=== PATIENT | female | born 1960 | race Caucasian/White ===

== ENCOUNTER 2017-07-07 10:40 | Inpatient (IN) | payer MEDICARE, OTHER ==
[~2017-07-07] VITALS: Ht 157.5 cm; Wt 80.2 kg
[~2017-07-07 10:40] MED LIST: ASPI81TA3 PO; ATOR10TA65 PO; BACTDS PO; GABA300C16 PO; LISI10TA2 PO; MECL-77 PO; MTF1000T PO
[2017-07-07] MEDS ORDERED: KETOROLAC 30 MG INJ IV STA (12:57)
[2017-07-07] MEDS ORDERED: SOD CHLORIDE 0.9% 1,000 ML IV STA (12:57)
--- NOTE | 2017-07-07 13:11 | ERA ---
ER Documentation Chief Complaint Date/Time DATE: 07/07/17 TIME: 13:05 Chief Complaint HPI This is a 56-year-old female with a past medical history of diabetes, hypertension, hyperlipidemia, multiple previous abdominal surgeries with a partial bowel resection and colostomy status post reversal who is presenting with 2 days of fever, chills, dry nonproductive cough, shortness of breath and full body aches and pains. The patient also endorses a pressure in the chest, exacerbated by coughing, nonradiating, not exacerbated by exertion. The patient 's headache is mild to moderate, generalized, aching without photophobia, nausea or vomiting. The patient was seen by her primary care doctor. She is found to be tachycardic, and she was referred to the ER for further evaluation. ROS All systems reviewed and are negative except as per history of present illness. Medications Home Meds Reported Medications Duloxetine Hcl* (Duloxetine Hcl*) 30 Mg Capsule.dr, 30 MG PO DAILY, #30 CAP 07/07/17 Mirtazapine* (Mirtazapine*) 15 Mg Tablet, 15 MG PO HS, TAB 07/07/17 Meclizine Hcl* (Meclizine Hcl*) 25 Mg Tablet, 12.5 MG PO Q8H Y for DIZZINESS, TAB 07/07/17 Gabapentin* (Gabapentin*) 300 Mg Capsule, 300 MG PO DAILY, #60 CAP 07/07/17 Olmesartan/Hydrochlorothiazide (Benicar Hct 40-25 mg Tablet) 1 Each Tablet, 1 EACH PO DAILY, TAB 07/07/17 Ferrous Sulfate* (Ferrous Sulfate*) 325 Mg Tabec, 325 MG PO DAILY, TAB 07/07/17 Fenofibrate Nanocrystallized* (Fenofibrate*) 145 Mg Tablet, 145 MG PO DAILY, TAB 07/07/17 Sitagliptin Phos/Metformin HCl (Janumet 50-1,000 mg Tablet) 1 Each Tablet, 1 EACH PO BID, TAB 07/07/17 Atorvastatin (Atorvastatin) 10 Mg Tablet, 10 MG PO DAILY, TAB 04/19/14 Discontinued Reported Medications Metformin* (Glucophage*) 1,000 Mg Tablet, 1000 MG PO BID, TAB 03/23/15 Aspirin (Aspirin) 81 Mg Chew, PO DAILY 08/15/13 Lisinopril* (Lisinopril*) 10 Mg Tablet, 10 MG PO DAILY 08/15/13 Gabapentin* (Gabapentin*) 300 Mg Capsule, 300 MG PO DAILY 08/15/13 Discontinued Scripts Sulfamethoxazole-Trimethoprim* (Bactrim* DS) 800-160 Mg Tab, 1 TAB PO BID for 7 Days, TAB Prov:MAT EDGAR MD 03/27/15 Allergies Allergies: Coded Allergies: vancomycin (Unverified Allergy, Intermediate, RASH, ITCHING, 06/08/14) Patient developed rash that evolved to body involvement, reportedly after Vanco infusion 06/05/14 Benadryl 25 mg IVP x 2, Solumedrol 60 mg IVP given Vanco DC'ed, changed to Zyvox Uncoded Allergies: vancomicine (Allergy, Intermediate, rash, iching, 06/08/14) PMhx/Soc History of Surgery: Yes (ABD COLON RESECTION 2013/BACK SURG 2013) Anesthesia Reaction: No Hx Neurological Disorder: No Hx Respiratory Disorders: No Hx Cardiac Disorders: Yes (HTN, HLD, DM) Hx Psychiatric Problems: No Hx Miscellaneous Medical Probl: No Hx Alcohol Use: No Hx Substance Use: No Hx Tobacco Use: No Smoking Status: Never smoker FmHx Family History: coronary disease, diabetes Physical Exam Vitals Vital Signs Date Time Temp Pulse Resp B/P Pulse Ox O2 Delivery O2 Flow Rate FiO2 07/07/17 18:07 98.9 97 29 151/82 94 2.0 07/07/17 15:00 3.0 07/07/17 13:35 98.5 92 34 112/100 Mechanical Ventilator 07/07/17 13:01 Nasal Cannula 2 Physical Exam Const: Well-developed, well-nourished Head: Atraumatic Eyes: Normal Conjunctiva ENT: Normal External Ears, Nose and Mouth. Moist Mucous membranes Neck: Full range of motion. ~ No meningismus. Resp: Clear to auscultation bilaterally Cardio: Regular rate and rhythm, no murmurs Abd: Soft, non tender, non distended. Normal bowel sounds Skin: No petechiae or rashes Back: No midline or flank tenderness Ext: No cyanosis, or edema Neur: Awake and alert Psych: Normal Mood and Affect Result Diagram: 07/07/17 1245 07/07/17 1245 Results 24 hrs Laboratory Tests Test 07/07/17 12:45 White Blood Count 14.110^3/ul Red Blood Count 4.7610^6/ul Hemoglobin 13.0g/dl Hematocrit 40.2% Mean Corpuscular Volume 84.5fl Mean Corpuscular Hemoglobin 27.3pg Mean Corpuscular Hemoglobin Concent 32.3g/dl Red Cell Distribution Width 13.9% Platelet Count 27309^3/UL Mean Platelet Volume 9.7fl Neutrophils % 73.6% Lymphocytes % 18.9% Monocytes % 6.0% Eosinophils % 0.4% Basophils % 0.4% Nucleated Red Blood Cells % 0.0/100WBC Neutrophils # (Manual) 10.410^3/ul Lymphocytes # 2.710^3/ul Monocytes # 0.810^3/ul Eosinophils # 0.110^3/ul Basophils # 0.110^3/ul Nucleated Red Blood Cells # 0.010^3/ul Sodium Level 141mmol/L Potassium Level 4.2mmol/L Chloride Level 96mmol/L Carbon Dioxide Level 26mmol/L Anion Gap 23 Blood Urea Nitrogen 34mg/dl Creatinine 1.42mg/dl Glucose Level 183mg/dl Calcium Level 10.1mg/dl Troponin I < 0.012ng/ml Current Medications Medications (Trade) Dose Ordered Sig/Anju Route PRN Reason Start Time Stop Time Status Last Admin Dose Admin Sodium Chloride (NS) 1,000 ml @ 1,000 mls/hr Q1H STAT IV 07/07/17 12:57 07/07/17 13:56 DC 07/07/17 13:31 Ketorolac Tromethamine 30 mg 30 mg ONCE STAT IV 07/07/17 12:57 07/07/17 12:59 DC 07/07/17 13:31 Sodium Chloride (NS) 1,000 ml @ 1,000 mls/hr Q1H ONCE IV 07/07/17 15:00 07/07/17 15:59 DC 07/07/17 16:15 Diphenhydramine HCl (Benadryl) 25 mg ONCE ONCE IV 07/07/17 15:00 07/07/17 15:02 DC 07/07/17 16:15 Prochlorperazine (Compazine Inj) 10 mg ONCE ONCE IV 07/07/17 15:00 07/07/17 15:02 DC 07/07/17 16:23 Acetaminophen (Tylenol Tab) 650 mg ONCE ONCE PO 07/07/17 15:00 07/07/17 15:02 DC 07/07/17 16:16 Ceftriaxone Sodium 1 gm 1 gm ONCE ONCE IM 07/07/17 17:00 07/07/17 18:03 DC Azithromycin (Zithromax 500mg/ NS (Pmx)) 250 ml @ 250 mls/hr ONCE ONCE IVPB 07/07/17 17:00 07/07/17 17:59 DC 07/07/17 18:04 IV Flush 10 ml 10 ml STK-MED ONCE .ROUTE 07/07/17 17:19 07/07/17 17:20 DC 07/07/17 17:50 Sodium Chloride (NS) 100 ml @ ud STK-MED ONCE .ROUTE 07/07/17 17:19 07/07/17 17:20 DC 07/07/17 17:51 Iodixanol (Visipaque Locm) 100 ml STK-MED ONCE .ROUTE 07/07/17 17:19 07/07/17 17:20 DC 07/07/17 17:51 Ondansetron HCl (Zofran Inj) 4 mg ER BRIDGE PRN IV NAUSEA AND/OR VOMITING 07/07/17 18:00 07/08/17 17:59 Acetaminophen 650 mg 650 mg ER BRIDGE PRN PO MILD PAIN/FEVER 07/07/17 18:00 07/08/17 17:59 Ceftriaxone Sodium (Rocephin) 50 ml @ 100 mls/hr ONCE ONCE IVPB 07/07/17 18:30 07/07/17 18:59 Procedures/MDM The patient is presenting with fever, tachycardia, myalgias and fatigue. The patient does have an elevated temperature at 100.3. She is also been hypoxic in the emergency department, oxygenating at 84% at times despite being on nasal cannula. I am concerned about an infectious etiology of her symptoms. The patient does endorse chest discomfort and pressure, worsening with cough. My suspicion for a cardiac etiology given her full constitution of symptoms is less. I do not hear a murmur on exam to think that this could be endocarditis. I am concerned about pneumonia. EKG read by me: Rate/Rhythm: Regular rhythm, sinus tachycardia at a rate of 104 Intervals: Normal [place]: Slight Right shifted Nonspecific repolarization abnormalities Impression: No evidence of acute ischemia or arrhythmia The patient's chest xray was read byt the radiologist as follows: MPRESSION: Low lung volumes . Elevated right hemidiaphragm and basilar atelectasis. Retrocardiac infiltrate or atelectasis and probable small bilateral pleural effusions. Cardiomegaly. Physician Sarah Date Time Electronically viewed and signed by Physician Sarah on 07/07/2017 14: 32 Given the patient's symptoms, I am concerned of a LLL pneumonia based on the chest xray. Given the patient's persistent tachycardia and hypoxia, a CTA chest was performed to rule out a PE. The study was read by the radiologist as follows : IMPRESSION: No CT evidence for pulmonary embolus. Patchy and confluent ground-glass opacities and likely developing consolidations are identified in the left greater than right lungs which are suspicious for a multifocal pneumonia. Follow-up to resolution is limited to exclude other etiologies such as septic and / or malignant emboli. Stable moderate cardiomegaly and mild pulmonary vascular congestion. 2.6 cm likely hemangioma in the left lobe of the liver. Physician Eulalio Date Time Electronically viewed and signed by Physician Eulalio on 07/07/2017 18:12 The patient was given 2 L of IV fluid in the emergency department. She was also given azithromycin and Rocephin in the emergency department for presumed pneumonia. She is currently being treated for community-acquired pneumonia. The patient does not have evidence of endocarditis. I do not intend to obtain and MRI at this time. Patient's blood work was obtained and reviewed. The patient does have a leukocytosis, which also correlates with an infectious etiology. The patient is not anemic. Her platelet count is normal. The patient's BMP does demonstrate an elevated creatinine at 1.42 with an elevated BUN at 34. Given the patient's age and approximate weight, I do place her GFR at around 60. I do feel that it was appropriate to give IV contrast to this patient. I do suspect dehydration. We gave her a total of 3 L of normal saline in the emergency department. The patient had a secondary complaint of a headache. She was given Toradol, Tylenol, Compazine and Benadryl in addition to IV fluids. This to helped to improve her headache. However, her headache did persist. We gave her fentanyl as well. The patient does not have any neck stiffness, and my suspicion for meningitis at this time is low. The patient was admitted to Dr. Blake, the panel hospitalist team as directed by her insurance. Departure Diagnosis: Primary Impression: Fever Qualified Code: R50.9 - Fever, unspecified fever cause Additional Impression: Tachycardia Condition: SEHILA Padilla MD Jul 07, 2017 13:11
[2017-07-07 13:27] LABS: BASOPHIL # 0.1 10^3/ul (0.0-0.1); BASOPHILS % 0.4 % (0.0-2.0); EOSINOPHILS # 0.1 10^3/ul (0.0-0.5); EOSINOPHILS % 0.4 % (0.0-7.0); HEMATOCRIT 40.2 % (37.0-47.0); LYMPHOCYTES # 2.7 10^3/ul (0.8-2.9); LYMPHOCYTES % 18.9 % (15.0-51.0); MEAN CORPUSCULAR HEMOGLOBIN 27.3 pg (29.0-33.0); MEAN CORPUSCULAR HGB CONC 32.3 g/dl (32.0-37.0); MEAN CORPUSCULAR VOLUME 84.5 fl (82.0-101.0); MEAN PLATELET VOLUME 9.7 fl (7.4-10.4); MONOCYTE # 0.8 10^3/ul (0.3-0.9); NEUTROPHILS % 73.6 % (39.0-77.0); PLATELET COUNT 338 10^3/UL (140-415); RED BLOOD COUNT 4.76 10^6/ul (4.20-5.40); RED CELL DISTRIBUTION WIDTH 13.9 % (11.5-14.5); WHITE BLOOD COUNT 14.1 10^3/ul (4.8-10.8)
[2017-07-07 13:46] LABS: ANION GAP 23 (8-16); BLOOD UREA NITROGEN 34 mg/dl (7-20); CALCIUM 10.1 mg/dl (8.4-10.2); CARBON DIOXIDE 26 mmol/L (21-31); CHLORIDE 96 mmol/L (97-110); CREATININE 1.42 mg/dl (0.44-1.00); GLUCOSE 183 mg/dl (70-220); POTASSIUM 4.2 mmol/L (3.5-5.1); SODIUM 141 mmol/L (135-144)
[2017-07-07 14:25] LABS: TROPONIN-I < 0.012 ng/ml (0.00-0.12)
--- NOTE | 2017-07-07 14:33 | RADRPT ---
PROCEDURE: XR Chest. CLINICAL INDICATION: Chest pain. TECHNIQUE: AP Portable chest. COMPARISON: 06/12/2014 FINDINGS: The patient is rotated to the left. The cardiomediastinal silhouette is enlarged. The aortic arch is calcified. The lung volumes are low with compressive changes. Increased elevation of the right hemidiaphragm and basilar atelectasis ar e visualized. Retrocardiac opacity is also seen. Probable small bilateral pleural effusions. No pne umothorax is seen. The osseous structures are intact IMPRESSION: Low lung volumes . Elevated right hemidiaphragm and basilar atelectasis. Retrocardiac infiltrate or atelectasis and probable small bilateral pleural effusions. Cardiomegaly. Physician Sarah Date Time Electronically viewed and signed by Physician Sarah on 07/07/2017 14:32 CS/
[2017-07-07] MEDS ORDERED: SITA1TAB5 PO (14:43)
[2017-07-07] MEDS ORDERED: FENO145T19 PO (14:45)
[2017-07-07] MEDS ORDERED: FER325 PO (14:46)
[2017-07-07] MEDS ORDERED: OLME1TAB5 PO (14:48)
[2017-07-07] MEDS ORDERED: GABA300C16 PO (14:48)
[2017-07-07] MEDS ORDERED: MIRT15TA5 PO (14:49)
[2017-07-07] MEDS ORDERED: MECL-77 PO (14:49)
[2017-07-07] MEDS ORDERED: DULO30CA47 PO (14:49)
[2017-07-07] MEDS ORDERED: SOD CHLORIDE 0.9% 1,000 ML IV ONE (15:00)
[2017-07-07] MEDS ORDERED: ACETAMINOPHEN 325 MG TAB PO ONE (15:00)
[2017-07-07] MEDS ORDERED: DIPHENHYDRAMINE 50 MG INJ IV ONE (15:00)
[2017-07-07] MEDS ORDERED: PROCHLORPERAZINE 10 MG INJ IV ONE (15:00)
[2017-07-07] MEDS ORDERED: AZITHROMYCIN 500MG/NS (PMX) 250 ML IVPB ONE (17:00)
[2017-07-07] MEDS ORDERED: CEFTRIAXONE 1 GM INJ IM ONE (17:00)
[2017-07-07] MEDS ORDERED: IODIXANOL LOCM 100 ML BTL ONE (17:19)
[2017-07-07] MEDS ORDERED: SOD CHLORIDE 0.9% 100 ML ONE (17:19)
[2017-07-07] MEDS ORDERED: ONDANSETRON 4 MG INJ IV PRN ×2 (18:00→19:00)
[2017-07-07] MEDS ORDERED: ACETAMINOPHEN 325 MG TAB PO PRN ×2 (18:00→19:00)
--- NOTE | 2017-07-07 18:12 | RADRPT ---
PROCEDURE: CTA Chest with contrast and with 3-D reconstructions CLINICAL INDICATION: persistent tachycardia, hypoxia, pain with deep breaths TECHNIQUE: The study was performed utilizing multidetector CT scanner. Direct spiral axial section s were obtained from the thoracic inlet to the upper abdomen with the use of intravenous contrast ma terial (100 cc of Visipaque 320). Sagittal, coronal and 3-D reformations were obtained. The images w ere reviewed on a PACS workstation. DLP 574.32 mGycm CTDIvol 19.72, 18.69 mGy One or more of the following dose reduction techniques were used: - Automated exposure control. - Adjustment of the mA and/or kV according to patient size. - Use of iterative reconstruction technique. COMPARISON: CTA chest from 06/13/2014 FINDINGS: There are no pulmonary emboli. There are patchy and confluent ground-glass opacities in bilateral lungs measuring up to 3 cm in the lateral aspect of the right mid lung which are suspicious for multifocal pneumonia there is mild pu lmonary vascular congestion. A possible consolidation is identified at the medial aspect of the lef t lung base posteriorly. There is no pleural fluid. There is no pneumothorax. There is stable moderate cardiomegaly. There is no pericardial fluid. The aorta is within normal l imits. There are no enlarged axillary or mediastinal lymph nodes. Again noted is a 2.6 cm round lesion in the superficial aspect of the left lobe of the liver which d emonstrates discontinuous peripheral nodular enhancement suggestive of a hemangioma. Osseous and soft tissue structures are within normal limits. IMPRESSION: No CT evidence for pulmonary embolus. Patchy and confluent ground-glass opacities and likely developing consolidations are identified in t he left greater than right lungs which are suspicious for a multifocal pneumonia. Follow-up to reso lution is limited to exclude other etiologies such as septic and / or malignant emboli. Stable moderate cardiomegaly and mild pulmonary vascular congestion. 2.6 cm likely hemangioma in the left lobe of the liver. RPTAT: EE Physician Eulalio Date Time Electronically viewed and signed by Juma Mo Physician on 07/07/2017 18:12 RA/
[2017-07-07] MEDS ORDERED: CEFTRIAXONE 1 GM/50 ML (PMX) 50 ML IVPB ONE (18:30)
[2017-07-07] MEDS ORDERED: MECLIZINE 12.5 MG TAB PO PRN (18:30)
[2017-07-07] MEDS ORDERED: ALBUTEROL/IPRATROPIUM (NEB) 3 ML AMP HHN PRN (19:00)
[2017-07-07] MEDS ORDERED: LORAZEPAM 2 MG INJ IV PRN (19:00)
[2017-07-07] MEDS ORDERED: NA PHOSPHATE/BIPHOS 133 ML ENEMA PR PRN (19:00)
[2017-07-07] MEDS ORDERED: NITROGLYCERIN (SL) 0.4 MG TAB SL PRN (19:00)
[2017-07-07] MEDS ORDERED: morphine 2 MG INJ IV PRN (19:00)
[2017-07-07] MEDS ORDERED: MAGNESIUM HYDROXIDE 30ML CUP PO PRN (19:00)
[2017-07-07] MEDS ORDERED: hydrALAzine 20 MG INJ IV PRN (19:00)
[2017-07-07] MEDS ORDERED: NACL 0.9% 3 ML SYG IV SCH (19:00)
[2017-07-07] MEDS ORDERED: DOCUSATE SODIUM 100 MG CAP PO PRN (19:00)
--- NOTE | 2017-07-07 19:04 | HP ---
DATE OF ADMISSION: 07/07/2017 CHIEF COMPLAINT: Chest pain and shortness of breath. HISTORY OF PRESENT ILLNESS: A 56-year-old female with past medical history of hypertension, diabetes, high cholesterol, prior pneumonia, who has been having body aches, shortness of breath and cough for the last 2 days and getting progressively worse. She took Tylenol Cold at home, which did not relieve her symptoms. No nausea or vomiting. No upper lower GI bleeding. No diarrhea. No constipation. No headaches or dizziness. No loss of consciousness. Her cough has been nonproductive. When she came into the ER today she was found with elevated white blood cell count of 14.1. Her chest x-ray showed signs of infiltrates and small bilateral pleural effusions. She ended up having a CTA of the chest performed in the ER that also showed signs of multifocal pneumonia. The patient was last here at our hospital in March 2015, at that time, she was treated for a kidney stone. ALLERGIES: VANCOMYCIN. HOME MEDICINES: 1. Atorvastatin 10 mg daily. 2. Dulcolax 30 mg daily. 3. Fenofibrate 145 mg daily. 4. Ferrous sulfate 325 mg daily. 5. Gabapentin 300 mg daily. 6. Meclizine 12.5 mg q.8 hours p.r.n. 7. Mirtazapine 50 mg bedtime. 8. Benicar 40-25, 1 tab daily. 9. Janumet 1 tab b.i.d. PAST SURGICAL HISTORY: Possible colon resection in 2013 and back surgery 2013. SOCIAL HISTORY: Negative for smoking, drinking, and IV drug use. FAMILY HISTORY: Noncontributory. PHYSICAL EXAMINATION: VITAL SIGNS: Today, T-max 99.0, pulse 65 to 97, respirations 16 to 34, blood pressure 116-151 systolic over 78-82 diastolic, and satting at 94 percent on 2 L nasal cannula. GENERAL: Patient lying in bed, appears somewhat lethargic, but answers questions appropriately. HEENT: Pupils equal, round, react to light. Extraocular muscles intact. NECK: Supple. No thyromegaly. LUNGS: Distant breath sounds bilaterally. CARDIOVASCULAR: S1, S2 heard. No rubs, gallops. ABDOMEN: Soft, nontender, nondistended. Normal bowel sounds. No rebound or guarding. MUSCULOSKELETAL: No lower extremity edema. NEUROLOGIC: No focal deficits. LABS: WBC 14.1, hemoglobin 13.0, hematocrit 40.2, and platelets 338. Sodium 141, potassium 4.2, chloride 96, CO2 26, BUN 34, creatinine 1.42, glucose 183. We mentioned the imaging studies. ASSESSMENT/PLAN: A 56-year-old female coming with shortness of breath, chest pain, and signs of multifocal pneumonia on imagin. Shortness of breath and chest pain secondary to multiple pneumonia. Admit the patient on broad-spectrum antibiotics. Check TSH, A1c, lipid panel, and intravenous (IV) fluids. Consider Infectious Disease consult. 2. History of diabetes. Check A1c, sliding scale insulin. 3. Hypertension. Continue current cardiac medications. Hydralazine p.r.n. 4. High cholesterol. Check lipid panel. 5. Renal insufficiency. Give her intravenous (IV) fluids. If creatinine worsens, consider Renal consult at that time. Consider physical therapy (PT) consult as well. Dictated By: Francisco Javier Blake MD /jesusita/tanner /Document#: [id number]
[2017-07-07] MEDS: SOD CHLORIDE 0.9% 1,000 ML IV SCH ×2 (19:54→23:57)
[2017-07-07] MEDS ORDERED: GLUCOSE GEL 15 GRAM TUBE PO PRN ×2 (20:00)
[2017-07-07] MEDS ORDERED: GLUCOSE GEL 15 GRAM TUBE BUCCAL PRN (20:00)
[2017-07-07] MEDS ORDERED: GLUCAGON 1 MG INJ IM PRN (20:00)
[2017-07-07] MEDS ORDERED: DEXTROSE 50% 50 ML SYRINGE IV PRN ×2 (20:00)
[2017-07-07] MEDS ORDERED: morphine 4 MG/ML VIAL IV STA (20:34)
[2017-07-07 21:37] VITALS: TEMP 98.9
[2017-07-07 21:46] VITALS: PULSE 97
[2017-07-07 22:45] VITALS: BP 134/79; RESP 16
[2017-07-07] MEDS: HEPARIN 5,000 UNIT/0.5 ML VIAL SC SCH (22:48)
[2017-07-07 23:16] VITALS: Ht 157.5 cm; Wt 80.2 kg
[2017-07-07] MEDS: INSULIN ASPART [NOVOLOG] 3 ML PEN SC SCH (23:56)
[2017-07-07] MEDS: PIPER-TAZO 3.375 GM IV (PMX) 100 ML IVPB SCH (23:57)
[2017-07-08] VITALS (13 sets, daily range): BP systolic 122–150; BP diastolic 66–78; PULSE 65–113; RESP 16–20
[2017-07-08] MEDS: ACCU-CHEK XX SCH (02:00)
[2017-07-08] MEDS ORDERED: PANTOPRAZOLE 40 MG INJ IV SCH (06:00)
[2017-07-08] MEDS: PIPER-TAZO 3.375 GM IV (PMX) 100 ML IVPB SCH ×3 (06:13→17:34)
[2017-07-08 08:11] LABS: BASOPHILS % 0.2 % (0.0-2.0); EOSINOPHILS # 0.1 10^3/ul (0.0-0.5); EOSINOPHILS % 1.1 % (0.0-7.0); HEMATOCRIT 35.2 % (37.0-47.0); LYMPHOCYTES # 1.7 10^3/ul (0.8-2.9); LYMPHOCYTES % 16.8 % (15.0-51.0); MEAN CORPUSCULAR HEMOGLOBIN 26.6 pg (29.0-33.0); MEAN CORPUSCULAR HGB CONC 31.3 g/dl (32.0-37.0); MEAN CORPUSCULAR VOLUME 85.2 fl (82.0-101.0); MEAN PLATELET VOLUME 9.6 fl (7.4-10.4); MONOCYTE # 0.5 10^3/ul (0.3-0.9); MONOCYTES % 5.4 % (0.0-11.0); NEUTROPHILS % 75.5 % (39.0-77.0); PLATELET COUNT 291 10^3/UL (140-415); RED BLOOD COUNT 4.13 10^6/ul (4.20-5.40); WHITE BLOOD COUNT 9.9 10^3/ul (4.8-10.8)
[2017-07-08 08:33] LABS: CHOL/HDL RATIO 4.5 RATIO
[2017-07-08] MEDS: FENOFIBRATE 145 MG TAB PO SCH (08:33)
[2017-07-08] MEDS: FERROUS SULFATE (EC) 325 MG TAB PO SCH (08:33)
[2017-07-08] MEDS: DULOXETINE 30 MG CAP DR PO SCH (08:33)
[2017-07-08] MEDS: ATORVASTATIN 10 MG TAB PO SCH (08:33)
[2017-07-08] MEDS: HEPARIN 5,000 UNIT/0.5 ML VIAL SC SCH ×2 (08:35→21:21)
[2017-07-08] MEDS: INSULIN ASPART [NOVOLOG] 3 ML PEN SC SCH ×4 (08:35→21:20)
[2017-07-08 08:41] LABS: CALCIUM 8.5 mg/dl (8.4-10.2); CREATININE 1.07 mg/dl (0.44-1.00); MAGNESIUM 1.6 mg/dl (1.7-2.5); PHOSPHORUS 3.3 mg/dl (2.5-4.9); POTASSIUM 4.1 mmol/L (3.5-5.1)
[2017-07-08 09:04] LABS: THYROID STIMULATING HORMONE 3.55 MIU/L (0.465-4.680)
[2017-07-08] MEDS: SOD CHLORIDE 0.9% 1,000 ML IV SCH (11:45)
[2017-07-08] MEDS: HYDROCODONE/APAP (5/325) TAB PO PRN (11:46)
[2017-07-08] MEDS ORDERED: MAGNESIUM SULFATE 2 GM/50 ML 50 ML IVPB ONE (14:00)
[2017-07-08 15:47] LABS: ADD UMIC YES; UR ASCORBIC ACID NEGATIVE (NEGATIVE); UR BILIRUBIN (Dip) NEGATIVE (NEGATIVE); UR BLOOD (Dip) NEGATIVE (NEGATIVE); UR CLARITY CLEAR (CLEAR); UR COLOR YELLOW (YELLOW); UR GLUCOSE (Dip) 2+ mg/dL (NEGATIVE); UR KETONES (Dip) NEGATIVE (NEGATIVE); UR LEUKOCYTE ESTERASE (Dip) NEGATIVE Leu/ul (NEGATIVE); UR NITRITE (Dip) NEGATIVE (NEGATIVE); UR RBC 1 /HPF (0-5); UR SPECIFIC GRAVITY (Dip) 1.021 (1.003-1.030); UR TOTAL PROTEIN (Dip) 1+ mg/dl (NEGATIVE); UR UROBILINOGEN (Dip) 1+ mg/dL (NEGATIVE)
--- NOTE | 2017-07-08 16:35 | PN ---
Date/Time of Note Date/Time of Note DATE: 07/08/17 TIME: 16:28 Assessment/Plan VTE Prophylaxis VTE Prophylaxis Intervention: heparin Lines/Catheters IV [facility] Peripheral IV Assessment/Plan Chief Complaint/Hosp Course ASSESSMENT/PLAN: A 56-year-old female coming with shortness of breath, chest pain, and signs of multifocal pneumonia on imagin. Shortness of breath and chest pain secondary to multifocal pneumonia. No fevers in last 24 hours, slowly improving. -Continue broad-spectrum antibiotics, TSH, A1c, lipid panel, and intravenous (IV) fluids. 2. History of diabetes = A1c equals 7.6 - sliding scale insulin. 3. Hypertension - stable - Continue current cardiac medications. - Hydralazine p.r.n. 4. High cholesterol -lipid panel 5. Renal insufficiency -improved after IV fluids given -Continue intravenous (IV) fluids. If creatinine worsens, consider Renal consult at that time. Consider physical therapy (PT) consult as well. Problems: Exam/Review of Systems Vital Signs Vitals Vital Signs Date Time Temp Pulse Resp B/P Pulse Ox O2 Delivery O2 Flow Rate FiO2 07/08/17 16:09 73 07/08/17 12:25 97.7 20 150/78 95 Nasal Cannula 2.0 Intake and Output 07/07/17 07/07/17 07/08/17 15:00 23:00 07:00 Intake Total 600 ml Balance 600 ml Exam GENERAL: Patient lying in bed, appears somewhat lethargic, but answers questions appropriately. HEENT: Pupils equal, round, react to light. Extraocular muscles intact. NECK: Supple. No thyromegaly. LUNGS: Distant breath sounds bilaterally. CARDIOVASCULAR: S1, S2 heard. No rubs, gallops. ABDOMEN: Soft, nontender, nondistended. Normal bowel sounds. No rebound or guarding. MUSCULOSKELETAL: No lower extremity edema. NEUROLOGIC: No focal deficits. Results Result Diagram: 07/08/17 0757 07/08/17 0757 Results 24 hrs Laboratory Tests Test 07/07/17 22:39 07/07/17 23:42 07/08/17 02:44 07/08/17 07:57 Bedside Glucose 215 200 185 White Blood Count 9.9 # Red Blood Count 4.13 L Hemoglobin 11.0 L Hematocrit 35.2 L Mean Corpuscular Volume 85.2 Mean Corpuscular Hemoglobin 26.6 L Mean Corpuscular Hemoglobin Concent 31.3 L Red Cell Distribution Width 14.0 Platelet Count 291 Mean Platelet Volume 9.6 Neutrophils % 75.5 Lymphocytes % 16.8 Monocytes % 5.4 Eosinophils % 1.1 Basophils % 0.2 Nucleated Red Blood Cells % 0.0 Neutrophils # (Manual) 7.5 Lymphocytes # 1.7 Monocytes # 0.5 Eosinophils # 0.1 Basophils # 0.0 Nucleated Red Blood Cells # 0.0 Sodium Level 142 Potassium Level 4.1 Chloride Level 103 Carbon Dioxide Level 26 Anion Gap 17 H Blood Urea Nitrogen 26 H Creatinine 1.07 H Glucose Level 163 Hemoglobin A1c 7.8 H Calcium Level 8.5 Phosphorus Level 3.3 Magnesium Level 1.6 L Triglycerides Level 213 H Cholesterol Level 136 LDL Cholesterol, Calculated 63 HDL Cholesterol 30 L Cholesterol/HDL Ratio 4.5 Thyroid Stimulating Hormone (TSH) 3.550 Test 07/08/17 08:16 07/08/17 11:40 07/08/17 15:30 Bedside Glucose 170 177 Urine Color YELLOW Urine Clarity CLEAR Urine pH 5.0 Urine Specific [place] 1.021 Urine Ketones NEGATIVE Urine Nitrite NEGATIVE Urine Bilirubin NEGATIVE Urine Urobilinogen 1+ H Urine Leukocyte Esterase NEGATIVE Urine Microscopic RBC 1 Urine Microscopic WBC 2 Urine Hemoglobin NEGATIVE Urine Glucose 2+ H Urine Total Protein 1+ H Medications Medications Current Medications Atorvastatin Calcium (Lipitor) 10 mg DAILY PO Last administered on 07/08/17 08 :33; Admin Dose 10 MG; Start 07/08/17 at 09:00 Duloxetine HCl (Cymbalta) 30 mg DAILY PO Last administered on 07/08/17 08:33; Admin Dose 30 MG; Start 07/08/17 at 09:00 Fenofibrate (Tricor) 145 mg DAILY PO Last administered on 07/08/17 08:33; Admin Dose 145 MG; Start 07/08/17 at 09:00 Ferrous Sulfate (Ferrous Sulfate (Ec)) 325 mg DAILY PO Last administered on 08:33; Admin Dose 325 MG; Start 07/08/17 at 09:00 Meclizine HCl (Antivert) 12.5 mg Q8H PRN PO DIZZINESS; Start 07/07/17 at 18:30 Ondansetron HCl (Zofran Inj) 4 mg Q6H PRN IV NAUSEA AND/OR VOMITING; Start at 19:00 Acetaminophen (Tylenol Tab) 650 mg Q6H PRN PO PAIN LEVEL 1-3 OR FEVER; Start at 19:00 Acetaminophen/ Hydrocodone Bitart ([place] (5/325)) 1 tab Q6H PRN PO MODERATE PAIN LEVEL 4-6 Last administered on 07/08/17 11:46; Admin Dose 1 TAB; Start at 19:00 Morphine Sulfate (morphine) 2 mg Q4H PRN IV SEVERE PAIN LEVEL 7-10; Start 07/07 at 19:00 Docusate Sodium (Colace) 100 mg Q12H PRN PO CONSTIPATION; Start 07/07/17 at 19: 00 Magnesium Hydroxide (Milk Of Mag) 30 ml DAILY PRN PO CONSTIPATION; Start at 19:00 Sodium Biphosphate/ Sodium Phosphate (Fleet Enema) 133 ml DAILY PRN [place] CONSTIPATION; Start 07/07/17 at 19:00 Pantoprazole (Protonix Iv) 40 mg DAILY@06 IV Last administered on 07/08/17 06: 13; Admin Dose 40 MG; Start 07/08/17 at 06:00 Heparin Sodium (Porcine) (Heparin (5000 Units/0.5 ml)) 5,000 unit Q12 SC Last administered on 07/08/17 08:35; Admin Dose 5,000 UNIT; Start 07/07/17 at 21:00 Lorazepam 0.5 mg 0.5 mg Q6H PRN IV ANXIETY; Start 07/07/17 at 19:00 Sodium Chloride 1,000 ml @ 100 mls/hr Q10H IV Last administered on 07/08/17 11:45; Admin Dose 100 MLS/HR; Start 07/07/17 at 18:34 Piperacillin Sod/ Tazobactam Sod (Zosyn 3.375gm/ 100 ml (Pmx)) 100 ml @ 200 mls /hr Q6 IVPB Last administered on 07/08/17 11:45; Admin Dose 200 MLS/HR; Start 07/08/17 at 00:00 Hydralazine HCl (Apresoline) 10 mg Q6H PRN IV ELEVATED BLOOD PRESSURE; Start at 19:00 Nitroglycerin (Nitroglycerin (Sl Tab) 0.4 Mg) 1 tab Q5M PRN SL ANGINA; Start at 19:00 Diagnostic Test (Pha) (Accu-Chek) 1 ea 02 XX ; Start 07/08/17 at 02:00 Miscellaneous Information 1 ea NOTE XX ; Start 07/07/17 at 20:00 Glucose (Glutose) 15 gm Q15M PRN PO DECREASED GLUCOSE; Start 07/07/17 at 20:00 Glucose (Glutose) 22.5 gm Q15M PRN PO DECREASED GLUCOSE; Start 07/07/17 at 20: 00 Dextrose (D50w Syringe) 25 ml Q15M PRN IV DECREASED GLUCOSE; Start 07/07/17 at 20:00 Dextrose (D50w Syringe) 50 ml Q15M PRN IV DECREASED GLUCOSE; Start 07/07/17 at 20:00 Glucagon (Glucagen) 1 mg Q15M PRN IM DECREASED GLUCOSE; Start 07/07/17 at 20:00 Glucose (Glutose) 15 gm Q15M PRN BUCCAL DECREASED GLUCOSE; Start 07/07/17 at 20 :00 CHITO HUNTER Jul 08, 2017 16:35
[2017-07-09] VITALS (10 sets, daily range): BP systolic 114–162; BP diastolic 58–79; PULSE 50–82; RESP 16–19
[2017-07-09] MEDS: PIPER-TAZO 3.375 GM IV (PMX) 100 ML IVPB SCH ×3 (01:21→12:22)
[2017-07-09] MEDS: ACCU-CHEK XX SCH (01:23)
[2017-07-09] MEDS: SOD CHLORIDE 0.9% 1,000 ML IV SCH ×3 (01:24→13:52)
[2017-07-09] MEDS: HYDROCODONE/APAP (5/325) TAB PO PRN (02:01)
[2017-07-09] MEDS ORDERED: PANTOPRAZOLE (EC) 40 MG TAB PO SCH (06:00)
[2017-07-09 08:26] LABS: BASOPHILS % 0.5 % (0.0-2.0); EOSINOPHILS # 0.1 10^3/ul (0.0-0.5); EOSINOPHILS % 2.2 % (0.0-7.0); HEMATOCRIT 33.5 % (37.0-47.0); HEMOGLOBIN 10.3 g/dl (12.0-16.0); LYMPHOCYTES # 1.6 10^3/ul (0.8-2.9); LYMPHOCYTES % 25.4 % (15.0-51.0); MEAN CORPUSCULAR HEMOGLOBIN 26.8 pg (29.0-33.0); MEAN CORPUSCULAR HGB CONC 30.7 g/dl (32.0-37.0); MEAN PLATELET VOLUME 9.8 fl (7.4-10.4); MONOCYTE # 0.4 10^3/ul (0.3-0.9); MONOCYTES % 6.9 % (0.0-11.0); NEUTROPHILS % 63.1 % (39.0-77.0); PLATELET COUNT 272 10^3/UL (140-415); RED BLOOD COUNT 3.85 10^6/ul (4.20-5.40); RED CELL DISTRIBUTION WIDTH 13.9 % (11.5-14.5); WHITE BLOOD COUNT 6.3 10^3/ul (4.8-10.8)
[2017-07-09] MEDS: ATORVASTATIN 10 MG TAB PO SCH (08:42)
[2017-07-09] MEDS: FERROUS SULFATE (EC) 325 MG TAB PO SCH (08:42)
[2017-07-09] MEDS: DULOXETINE 30 MG CAP DR PO SCH (08:42)
[2017-07-09] MEDS: FENOFIBRATE 145 MG TAB PO SCH (08:42)
[2017-07-09] MEDS: INSULIN ASPART [NOVOLOG] 3 ML PEN SC SCH ×2 (08:44→12:26)
[2017-07-09] MEDS: HEPARIN 5,000 UNIT/0.5 ML VIAL SC SCH (08:45)
[2017-07-09 08:49] LABS: CALCIUM 8.3 mg/dl (8.4-10.2); POTASSIUM 4.7 mmol/L (3.5-5.1)
--- NOTE | 2017-07-09 16:14 | PDOCDIS ---
Discharge Instructions CONDITION Patient Condition: Stable HOME CARE INSTRUCTIONS: Special Diet: carb controlled ACTIVITY: Activity Restrictions: Slowly Increase Activity FOLLOW UP/APPOINTMENTS Follow-up Plan Please take your medications as prescribed. If you experience any shortness of breath, cough, or fevers, please go to ER, call 911, or see her primary care doctor. Please follow-up with her regular doctor in the clinic in the next 1 week. CHITO HUNTER Jul 09, 2017 16:14
[2017-07-09] MEDS ORDERED: LEVO750T25 PO (16:15)
--- NOTE | 2017-07-09 16:52 | DS ---
DATE OF ADMISSION: 07/07/2017 DATE OF DISCHARGE: 07/09/2017 HOSPITAL COURSE: This is a 56-year-old female originally admitted on July 07, 2017 and being discharged home on July 09, 2017. The patient came in with chest pain and shortness of breath. She was found on imaging studies with multifocal pneumonia. She was admitted to the telemetry floor. She had a slight leukocytosis on the day of admission, but no fevers, no elevated white blood cell count by the day of discharge. Over the course of her hospital stay, her breathing symptoms improved. She was able to ambulate and tolerate a p.o. diet. She was weaned off her low dose supplemental oxygen. She was found with a hemoglobin A1c of 7.8, and placed on sliding scale insulin. Her sugars were in the high normal range. Because patient is clinically improved, she will be discharged home today in improved condition. She was placed on IV antibiotics on admission. DISCHARGE MEDICATIONS: She will go home with the following medications, 1. Levaquin 750 mg p.o. q.day for 7 days. 2. Atorvastatin 10 mg daily. 3. Duloxetine 30 mg daily. 4. Fenofibrate 145 mg daily. 5. Ferrous sulfate 325 mg daily. 6. Gabapentin 300 mg daily. 7. Meclizine 12.5 mg q.8 hours p.r.n. 8. Mirtazapine 50 mg nightly. 9. Benicar 40-25, 1 tab daily. 10. Janumet 50-1000 mg 1 tab p.o. b.i.d. FOLLOWUP: She will need to follow up with her regular doctor in the clinic in next 1 to 2 weeks. FINAL DIAGNOSES: 1. Chest pain and shortness of breath likely secondary to multifocal pneumonia, now improved on IV antibiotics. 2. Essential hypertension. 3. Type 2 diabetes. 4. High cholesterol. 5. History of prior pneumonia. Time spent with discharge of the patient, 45 minutes. Dictated By: Frnacisco Javier Blake MD /jesusita/krys /Document#: [id number]
[2017-07-09] MEDS ORDERED: INSULIN GLARGINE [LANtus] 3 ML PEN SC SCH (20:00)
== END 2017-07-09 17:25 | disposition home or self-care (01) | DRG 195 ==
LOC: E/R 12:12 → MS4 17:45
PROVIDERS: ADMIT Hospitalist; ATTEND Hospitalist
DX: J18.9 Pneumonia, unspecified organism (principal); I10 Essential (primary) hypertension; N28.9 Disorder of kidney and ureter, unspecified; E78.5 Hyperlipidemia, unspecified; E11.9 Type 2 diabetes mellitus without complications; E78.00 Pure hypercholesterolemia, unspecified
CPT/HCPCS: 36415; 71010; 71275; 80048; 80061; 81001; 82962; 83036; 83735; 84100; 84439; 84443; 84484; 85025; 93005; 96374; 96375; C9113; J0456; J0696; J0780; J1200; J1644; J1815; J1885; J2270; J2543; J3475; J7030; Q9967

== ENCOUNTER 2019-02-05 01:14 | Emergency (ER) | payer MEDICARE, OTHER ==
[~2019-02-05] VITALS: Ht 154.9 cm; Wt 77.7 kg
[~2019-02-05 01:14] MED LIST changes: -ASPI81TA3 PO; -BACTDS PO; +DULO30CA47 PO; +FENO145T37 PO; +FER325 PO; +LEVO750T25 PO; -LISI10TA2 PO; +MIRT15TA5 PO; -MTF1000T PO; +OLME1TAB27 PO; +SITA1TAB5 PO
[2019-02-05 01:21] VITALS: Ht 154.9 cm; Wt 77.7 kg
[2019-02-05] MEDS ORDERED: KETOROLAC 15 MG INJ IV STA (02:12)
[2019-02-05] MEDS ORDERED: morphine 4 MG/ML VIAL IV STA (02:12)
[2019-02-05] MEDS ORDERED: SOD CHLORIDE 0.9% 1,000 ML IV STA (02:12)
[2019-02-05] MEDS ORDERED: ONDANSETRON 4 MG INJ IV STA (02:12)
[2019-02-05] MEDS ORDERED: CEFTRIAXONE 1 GM/50 ML (PMX) 50 ML IVPB STA (03:57)
--- NOTE | 2019-02-05 04:58 | ERD ---
ER Documentation Chief Complaint Chief Complaint L flank/side pain x 5hrs; hx calculi,DM HPI This is a 58-year-old female with a history of diabetes, prior history of kidney stones who presents with left flank pain, which is described as intermittent. She denies fever, she has not had any abdominal pain, no nausea vomiting. Pain radiates on the flank, feels similar to prior episodes of kidney stones. She has not had chest pain or shortness of breath. ROS All systems reviewed and are negative except as per history of present illness. Medications Home Meds Active Scripts Levofloxacin* (Levaquin*) 750 Mg Tablet, 750 MG PO DAILY for 7 Days, TAB Prov:KATELYN HUNTERP S. 07/09/17 Reported Medications Duloxetine Hcl* (Duloxetine Hcl*) 30 Mg Capsule.dr, 30 MG PO DAILY, #30 CAP 07/07/17 Mirtazapine* (Mirtazapine*) 15 Mg Tablet, 15 MG PO HS, TAB 07/07/17 Meclizine Hcl* (Meclizine Hcl*) 25 Mg Tablet, 12.5 MG PO Q8H PRN for DIZZINESS, TAB 07/07/17 Gabapentin* (Gabapentin*) 300 Mg Capsule, 300 MG PO DAILY, #60 CAP 07/07/17 Olmesartan/Hydrochlorothiazide (Benicar Hct 40-25 mg Tablet) 1 Each Tablet, 1 EACH PO DAILY, TAB 07/07/17 Ferrous Sulfate* (Ferrous Sulfate*) 325 Mg Tabec, 325 MG PO DAILY, TAB 07/07/17 Fenofibrate Nanocrystallized* (Fenofibrate*) 145 Mg Tablet, 145 MG PO DAILY, TAB 07/07/17 Sitagliptin Phos/Metformin HCl (Janumet 50-1,000 mg Tablet) 1 Each Tablet, 1 EACH PO BID, TAB 07/07/17 Atorvastatin (Atorvastatin) 10 Mg Tablet, 10 MG PO DAILY, TAB 04/19/14 Allergies Allergies: Coded Allergies: vancomycin (Unverified Allergy, Intermediate, RASH, ITCHING, 06/08/14) Patient developed rash that evolved to body involvement, reportedly after Vanco infusion 06/05/14 Benadryl 25 mg IVP x 2, Solumedrol 60 mg IVP given Vanco DC'ed, changed to Zyvox PMhx/Soc History of Surgery: Yes (colon resection 2013, lithotripsy 2014, mult others) Anesthesia Reaction: No Hx Neurological Disorder: No Hx Respiratory Disorders: No Hx Cardiac Disorders: Yes (htn) Hx Psychiatric Problems: No Hx Miscellaneous Medical Probl: Yes (diabetes, high cholesterol, kidneystone in past) Hx Alcohol Use: No Hx Substance Use: No Hx Tobacco Use: No Smoking Status: Unknown if ever smoked Physical Exam Vitals Vital Signs Date Temp Pulse Resp B/P (MAP) Pulse Ox O2 O2 Flow FiO2 Time Delivery Rate 02/05/19 64 18 194/111 97 Room Air 02:00 (138) 02/05/19 97.6 92 20 195/106 95 01:21 (135) Physical Exam Const: Well-appearing, afebrile, nontoxic Head: Atraumatic Eyes: Normal Conjunctiva ENT: Normal External Ears, Nose and Mouth. Neck: Full range of motion. No meningismus. Resp: Clear to auscultation bilaterally Cardio: Regular rate and rhythm, no murmurs Abd: Soft, non tender, non distended, no rebound or guarding. Normal bowel sounds Skin: No petechiae or rashes Back: No midline or flank tenderness Ext: No cyanosis, or edema Neur: Awake and alert Psych: Normal Mood and Affect Result Diagram: 02/05/1922002/05/19220 Results 24 hrs Laboratory Tests Test 02/05/19 02:12 02/05/19 02:18 02/05/19 02:21 Bedside Urine pH (LAB) 6.0 Bedside Urine Protein (LAB) 3+ Bedside Urine Glucose (UA) Negative Bedside Urine Ketones (LAB) Trace Bedside Urine Blood 2+ Bedside Urine Nitrite (LAB) Negative Bedside Urine Leukocyte Esterase Negative (L Bedside Glucose 225 mg/dL White Blood Count 13.7 10^3/ul Red Blood Count 5.09 10^6/ul Hemoglobin 14.1 g/dl Hematocrit 44.5 % Mean Corpuscular Volume 87.4 fl Mean Corpuscular Hemoglobin 27.7 pg Mean Corpuscular 31.7 g/dl Hemoglobin Concent Red Cell Distribution Width 14.1 % Platelet Count 295 10^3/UL Mean Platelet Volume 10.2 fl Immature Granulocytes % 1.000 % Neutrophils % 82.2 % Lymphocytes % 12.4 % Monocytes % 3.8 % Eosinophils % 0.1 % Basophils % 0.5 % Nucleated Red Blood Cells % 0.0 /100WBC Immature Granulocytes # 0.140 10^3/ul Neutrophils # 11.3 10^3/ul Lymphocytes # 1.7 10^3/ul Monocytes # 0.5 10^3/ul Eosinophils # 0.0 10^3/ul Basophils # 0.1 10^3/ul Nucleated Red Blood Cells # 0.0 10^3/ul Urine Color YELLOW Urine Clarity CLEAR Urine pH 6.0 Urine Specific [place] 1.016 Urine Ketones TRACE mg/dL Urine Nitrite NEGATIVE mg/dL Urine Bilirubin NEGATIVE mg/dL Urine Urobilinogen NEGATIVE mg/dL Urine Leukocyte Esterase NEGATIVE [place]/ul Urine Microscopic RBC 30 /HPF Urine Microscopic WBC 4 /HPF Urine Squamous Epithelial Cells FEW /HPF Urine Hemoglobin 1+ mg/dL Urine Glucose 1+ mg/dL Urine Total Protein 2+ mg/dl Sodium Level 141 mmol/L Potassium Level 4.3 mmol/L Chloride Level 104 mmol/L Carbon Dioxide Level 25 mmol/L Anion Gap 12 Blood Urea Nitrogen 34 mg/dl Creatinine 1.03 mg/dl Est Glomerular Filtrat 55 mL/min Rate mL/min Glucose Level 234 mg/dl Calcium Level 9.9 mg/dl Total Bilirubin 0.3 mg/dl Direct Bilirubin 0.00 mg/dl Indirect Bilirubin 0.3 mg/dl Aspartate Amino Transf (AST/SGOT) 22 IU/L Alanine 30 IU/L Aminotransferase (ALT/SGPT) Alkaline Phosphatase 59 IU/L Total Protein 7.7 g/dl Albumin 4.5 g/dl Globulin 3.20 g/dl Albumin/Globulin Ratio 1.40 Lipase 528 U/L Current Medications Medications Dose Sig/Anju Start Time Status Last (Trade) Ordered Route PRN Stop Time Admin Dose Reason Admin Sodium 1,000 ml @ Q1H STAT 02/05/19 DC 02/05/19 Chloride 1,000 mls/hr IV 02:12 02:27 02/05/19 03:11 Morphine 4 mg ONCE STAT 02/05/19 DC 02/05/19 Sulfate IV 02:12 02:27 (morphine) 02/05/19 02:14 Ondansetron 4 mg ONCE STAT 02/05/19 DC 02/05/19 HCl (Zofran IV 02:12 02:27 Inj) 02/05/19 02:14 Ketorolac 15 mg ONCE STAT 02/05/19 DC 02/05/19 Tromethamine IV 02:12 02:27 (Toradol) 02/05/19 02:14 Ceftriaxone 50 ml @ ONCE STAT 02/05/19 DC 02/05/19 Sodium 100 mls/hr IVPB 03:57 04:17 02/05/19 04:26 Procedures/MDM This is a 58-year-old female presents with left flank pain, on exam she has no peritoneal signs, and she is afebrile and nontoxic-appearing. Her symptoms feel similar to prior episodes of kidney stones, however I did not note leukocytosis, and thus a CT scan was ordered to evaluate further for signs of infection. This was negative, and I suspect the leukocytosis would not likely reactive in the setting of pain. Clinically she has no signs or symptoms of small bowel obstruction. The CT did not know findings indicative of passed renal stone versus urinary tract infection, although she did not have significant pyuria, I feel that she would not likely benefit from empiric antibiotics for treatment of possible UTI, particularly given her history of diabetes. She was given cephalexin in the ED, urine culture will be sent, and she will be discharged on Keflex, at discharge the patient with no acute distress. EKG: Rate/Rhythm: Normal Sinus Rhythm QRS, ST, T-waves: No changes consistent w/ acute ischemia. There are minimal T wave inversions in the anterior lateral leads, Impression: No evidence of ischemia or arrhythmia IMPRESSION: 1. Mild asymmetric prominence of the left renal collecting system and moderate amount of fluid surrounding the left kidney. Findings may indicate recently passed stone or ascending urinary tract infection/pyelonephritis. 2. No intrarenal or ureteral calcifications otherwise demonstrated. Right kidney and ureter appear normal. 3. Previous small bowel surgery with focal dilatation of the small bowel proximal to the anastomosis. This may indicate chronic patulous dilatation of the bowel versus low grade/partial obstruction. The remainder of the small bowel appears normal. 4. Enlarged fatty infiltrated liver. 5. Mild aortic atherosclerosis. Departure Diagnosis: Primary Impression: Flank pain Additional Impression: History of kidney stones Condition: PRAVEEN Odell MD Feb 05, 2019 04:58
[2019-02-05] MEDS ORDERED: CEPH-443 PO (05:08)
[2019-02-05 05:24] VITALS: BP 113/63; PULSE 66; RESP 18
== END 2019-02-05 05:27 | disposition home or self-care (01) ==
LOC: E/R 01:14
DX: R10.9 Unspecified abdominal pain (principal); I10 Essential (primary) hypertension; E11.9 Type 2 diabetes mellitus without complications; Z79.84 Long term (current) use of oral hypoglycemic drugs; Z87.442 Personal history of urinary calculi
CPT/HCPCS: 36415; 74176; 80053; 81001; 82962; 83690; 85025; 87086; 93005; 96374; 96375; 99285; J0696; J1885; J2270; J2405; J7030; 81003